=== PATIENT | female | born 1995 | race Caucasian/White ===

== ENCOUNTER 2017-10-11 20:18 | Emergency (ER) | payer MEDICAID ==
[~2017-10-11] VITALS: Ht 165.1 cm; Wt 70.5 kg
[~2017-10-11 20:18] MED LIST: HYDR-569 PO; ONDA4TAB6 PO
[2017-10-11 20:56] VITALS: BP 126/77
== END 2017-10-11 22:50 | disposition left against medical advice (07) ==
LOC: ER 20:19
DX: M25.571 Pain in right ankle and joints of right foot (principal); Z53.21 Procedure and treatment not carried out due to patient leaving prior to being seen by health care provider

== ENCOUNTER 2018-05-17 13:20 | Emergency (ER) | payer MEDICAID ==
[~2018-05-17] VITALS: Ht 165.1 cm; Wt 72.7 kg
[~2018-05-17 13:20] MED LIST changes: +HYDR-4383 PO; -HYDR-569 PO
[2018-05-17 13:53] LABS: BASOPHILS # (AUTO) 0.1 X10'3 (0-0.2); BASOPHILS % (AUTO) 0.8 % (0-1); EOSINOPHILS # (AUTO) 0.1 X10'3 (0-0.9); EOSINOPHILS % (AUTO) 0.9 % (0-6); HEMATOCRIT 43.3 % (35.0-45.0); HEMOGLOBIN 14.6 g/dl (12.0-16.0); MEAN CORPUSCULAR HEMOGLOBIN 28.8 PG (27.0-31.0); MEAN CORPUSCULAR HGB CONC 33.6 g/dL (33.0-36.5); MEAN CORPUSCULAR VOLUME 85.7 FL (78-98); MEAN PLATELET VOLUME 8.5 FL (7.4-10.4); MONOCYTES # (AUTO) 0.9 X10'3 (0-0.9); MONOCYTES % (AUTO) 8.1 % (2-12); NEUTROPHILS # (AUTO) 7.6 X10'3 (1.8-7.7); NEUTROPHILS % (AUTO) 71.2 % (42-75); PLATELET COUNT 287 X10'3 (140-440); RED BLOOD COUNT 5.05 X10'6 (4.20-5.60); RED CELL DISTRIBUTION WIDTH 13.2 % (11.5-14.5); WHITE BLOOD COUNT 10.7 X10'3 (4.5-11.0)
[2018-05-17 14:08] LABS: ALANINE AMINOTRANSFERASE 25 U/L (12-78); ALBUMIN/GLOBULIN RATIO 1.3 (1.1-1.5); ALKALINE PHOSPHATASE 103 IU/L (46-116); AMYLASE 28 U/L (25-115); ANION GAP 4 (8-16); ASPARTATE AMINO TRANSFERASE 18 U/L (10-37); BILIRUBIN,TOTAL 0.3 MG/DL (0.1-1.0); BLOOD UREA NITROGEN 8 MG/DL (7-18); BUN/CREATININE RATIO 9.8 (6.6-38.0); CALCIUM 8.2 MG/DL (8.5-10.1); CHLORIDE 106 MMOL/L (99-107); CREATININE 0.82 MG/DL (0.40-0.90); GLUCOSE 90 MG/DL (70-104); LIPASE 130 U/L (73-393); POTASSIUM 3.7 MMOL/L (3.5-5.1); SODIUM 140 MMOL/L (135-145); eGFR 86 ML/MIN
[2018-05-17] MEDS ORDERED: ondansetron 4mg rapidly disintigrating tab PO ONE (14:10)
[2018-05-17] MEDS ORDERED: ketorolac tromethamine 15mg/ml inj. IM ONE (14:10)
[2018-05-17 14:11] LABS: PROTHROMBIN TIME 9.9 SECONDS (9.0-12.0)
[2018-05-17 14:12] LABS: COLOR,URINE RED (Yellow); URINE HCG NEGATIVE (NEG)
[2018-05-17 14:13] LABS: UA COLLECTION TYPE CLN CATCH MIDSTREAM
[2018-05-17 14:16] LABS: CLARITY,URINE BLOODY (Clear)
[2018-05-17 14:28] LABS: RBC,URINE TNTC /HPF (0-2)
[2018-05-17 14:30] LABS: BACTERIA,URINE FEW /HPF (Neg); SQUAMOUS EPITHELIAL CELL,UR NONE SEEN /LPF (FEW); WBC,URINE 0-4 /HPF (0-4)
[2018-05-17 16:00] VITALS: BP 135/78
== END 2018-05-17 18:03 | disposition home or self-care (01) ==
LOC: ER 13:20
DX: N93.8 Other specified abnormal uterine and vaginal bleeding (principal); R10.30 Lower abdominal pain, unspecified; Z88.1 Allergy status to other antibiotic agents; Z88.8 Allergy status to other drugs, medicaments and biological substances
CPT/HCPCS: 36415; 76856; 80053; 81001; 81025; 82150; 83690; 85025; 85610; 96372; 99284; J1885

== ENCOUNTER 2019-04-04 15:55 | Emergency (ER) | payer MEDICAID ==
[~2019-04-04] VITALS: Ht 165.1 cm; Wt 70.0 kg
[2019-04-04] MEDS ORDERED: ondansetron 4mg rapidly disintigrating tab PO STA (16:06)
[2019-04-04 16:07] VITALS: BP 156/98
[2019-04-04] MEDS ORDERED: pantoprazole 40mg Tablet.DR PO ONE (16:10)
[2019-04-04] MEDS ORDERED: famotidine 20mg tablet PO ONE (16:10)
[2019-04-04] MEDS ORDERED: ketorolac trometh. 30mg/ml inj. IM ONE (16:30)
[2019-04-04 16:31] LABS: URINE HCG NEGATIVE (NEG)
[2019-04-04 16:32] LABS: CLARITY,URINE CLOUDY (Clear); COLOR,URINE YELLOW (Yellow); GLUCOSE, URINE NEGATIVE (Neg); KETONES,URINE TRACE mg/dl (Neg); LEUKOCYTE ESTERASE ,URINE NEGATIVE (Neg); NITRITES, URINE NEGATIVE (Neg); OCCULT BLOOD,URINE NEGATIVE (Neg); PH,URINE 5.5 (4.8-8.0); PROTEIN,URINE NEGATIVE (Neg); UA COLLECTION TYPE CLN CATCH MIDSTREAM; UROBILINOGEN,URINE 0.2 E.U/dL (0.2-1.0)
[2019-04-04 16:37] LABS: MUCUS STRANDS MANY /LPF (Neg); SQUAMOUS EPITHELIAL CELL,UR MANY /LPF (FEW)
[2019-04-04 16:38] LABS: BACTERIA,URINE 2+ /HPF (Neg); RBC,URINE 0-2 /HPF (0-2); URINE AMPHETAMINE SCREEN NEGATIVE (Neg); URINE BARBITUATE SCREEN NEGATIVE (Neg); URINE BENZODIAZEPINES SCREEN NEGATIVE (Neg); URINE CANNABINOID SCREEN POSITIVE (Neg); URINE COCAINE SCREEN NEGATIVE (Neg); URINE METHADONE SCREEN NEGATIVE (Neg); URINE OPIATE SCREEN NEGATIVE (Neg); URINE PHENCYCLIDINE SCREEN NEGATIVE (Neg); WBC,URINE 0-4 /HPF (0-4)
[2019-04-04] MEDS ORDERED: PANT-47 PO (16:43)
[2019-04-04] MEDS ORDERED: acetaminophen 325mg tablet PO ONE (16:50)
== END 2019-04-04 17:03 | disposition home or self-care (01) ==
LOC: ER 15:56
DX: K21.9 Gastro-esophageal reflux disease without esophagitis (principal); B34.9 Viral infection, unspecified; R51 Headache; R05 Cough; R09.81 Nasal congestion; R11.2 Nausea with vomiting, unspecified; F12.90 Cannabis use, unspecified, uncomplicated; Z88.1 Allergy status to other antibiotic agents; Z88.8 Allergy status to other drugs, medicaments and biological substances; Z79.899 Other long term (current) drug therapy
CPT/HCPCS: 71045; 80305; 81001; 81025; 96372; 99284; J1885